=== PATIENT | male | born 2000 | race Caucasian/White ===

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

== ENCOUNTER 2021-01-05 01:52 | Emergency (ER) | payer SELFPAY ==
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
[2021-01-05] MEDS ORDERED: Iopamidol 755 Mg/ML 100 ML Bottle IVPUSH ONE (02:04)
[2021-01-05 02:36] LABS: BLOOD UREA NITROGEN,BUN 6 mg/dL (7.0-18.0); CARBON DIOXIDE,CO2 19.8 mmol/L (21.0-32.0); CHLORIDE,CL 105 mmol/L (98-107); GLUCOSE RANDOM 119 mg/dL (74-106); POTASSIUM,K 3.3 mmol/L (3.5-5.1); SODIUM,NA 144 mmol/L (136-148)
[2021-01-05] MEDS ORDERED: Morphine 4 MG/ML Syringe IVPUSH ONE (02:46)
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
[2021-01-05] MEDS ORDERED: Sodium Chloride 0.9% 1,000 ML IV ONE (03:17)
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
[2021-01-05] MEDS ORDERED: ceFAZolin 1 GM in Premix Bag 1 BAG IV ONE (03:44)
[2021-01-05 20:29] VITALS: PULSE 81
[2021-01-05 20:38] VITALS: BP 100/72
== END 2021-01-05 04:47 ==
LOC: MW.ED 01:52
DX: S31.114A Laceration without foreign body of abdominal wall, left lower quadrant without penetration into peritoneal cavity, initial encounter (principal); S36.81XA Injury of peritoneum, initial encounter; W26.8XXA Contact with other sharp object(s), not elsewhere classified, initial encounter
CPT/HCPCS: 36415; 36430; 71045; 74177; 80053; 80307; 82550; 83605; 85025; 86900; 86901; 86920; 86921; 86922; 96365; 96375; 99291; J0690; J2270; J7030; P9016; Q9967

== ENCOUNTER 2021-02-04 15:44 | Emergency (ER) | payer SELFPAY ==
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
[2021-02-04 16:05] VITALS: BP 111/71; PULSE 88
== END 2021-02-04 16:05 ==
LOC: MW.ED 15:44
DX: S83.92XA Sprain of unspecified site of left knee, initial encounter (principal); X58.XXXA Exposure to other specified factors, initial encounter; Y93.01 Activity, walking, marching and hiking
CPT/HCPCS: 99283